=== PATIENT | female | born 1950 | race Caucasian/White ===

== ENCOUNTER 2018-02-08 11:41 | Outpatient (CLI) | payer MEDICARE, BC | END 2018-02-08 11:42 | disposition home or self-care (01) | LOC: BICRAD 11:41 | PROVIDERS: ATTEND Internal Medicine | DX: I10 Essential (primary) hypertension (principal) | CPT/HCPCS: 71046 ==

== ENCOUNTER 2018-08-02 09:29 | Outpatient (CLI) | payer MEDICARE, BC ==
--- NOTE | 2018-08-02 10:54 | BD ---
DEXA BONE DENSITY STUDY: History: Postmenopausal. Lumbar Spine: BMD (g/cm2) L1 1.004 T-Score: +0.1 L2 1.064 T-Score: +0.1 L3 1.126 T-Score: +0.4 L4 1.188 T-Score: +1.2 L1-L4 1.104 T-Score: +0.5 Femoral Neck: 0.490 T-Score: +3.2 Total Femur: 0.746 T-Score: -1.6 Impression: 1. Normal bone mineral density of the lumbar spine. 2. Osteoporosis of the left femoral neck. 3. 10-year fracture risk major osseous spinal fracture is 17% and hip fracture is 6.3%. These fractur e probabilities are calculated for an untreated patient. POS: CHRISTI
== END 2018-08-02 09:30 | disposition home or self-care (01) ==
LOC: BICMAMMO 09:29
PROVIDERS: ATTEND Obstetrics & Gynecology
DX: Z12.31 Encounter for screening mammogram for malignant neoplasm of breast (principal); M81.0 Age-related osteoporosis without current pathological fracture; Z80.3 Family history of malignant neoplasm of breast
CPT/HCPCS: 77063; 77067; 77080

== ENCOUNTER 2019-08-03 09:45 | Outpatient (CLI) | payer MEDICARE, BC ==
--- NOTE | 2019-08-03 12:05 | BD ---
DEXA BONE DENSITY STUDY: HISTORY: Postmenopausal. LUMBAR SPINE BMD (g/cm2) T-SCORE L1 1.000 +0.1 L2 1.182 +1.4 L3 1.141 +0.5 L4 1.083 +0.2 TOTAL 1.104 +0.5 LEFT FEMORAL NECK 0.500 -3.1 TOTAL 0.707 -1.9 IMPRESSION: 1. Osteoporosis of the left femoral neck. 2. Normal bone mineral density of the lumbar spine. POS: [facility]
--- NOTE | 2019-08-03 13:40 | MMO ---
Bilateral MAMMO Bilat Screen [facility]. CLINICAL HISTORY: Patient is 69 years old and is seen for screening. The patient has the following family history of breast cancer: maternal grandmother, at age 67. The patient has no personal history of cancer. VIEWS: The views performed were: bilateral craniocaudal with tomosynthesis; bilateral mediolateral oblique with tomosynthesis; and right mediolateral oblique. FILMS COMPARED: The present examination has been compared to prior imaging studies performed at [facility] on 07/21/2016, 07/27/2017, 08/05/2017 and 08/02/2018. This study has been interpreted with the assistance of computer-aided detection. MAMMOGRAM FINDINGS: The breasts are heterogeneously dense, which could obscure a lesion on mammography. There are no suspicious masses, suspicious calcifications, or new areas of architectural distortion. IMPRESSION: THERE IS NO MAMMOGRAPHIC EVIDENCE OF MALIGNANCY. A ROUTINE FOLLOW-UP MAMMOGRAM IN 1 YEAR IS RECOMMENDED. THE RESULTS OF THIS EXAM WERE SENT TO THE PATIENT. ACR BI-RADS Category 1 - Negative MAMMOGRAPHY NOTE: 1. A negative mammogram report should not delay a biopsy if a dominant of clinically suspicious mass is present. 2. Approximately 10% to 15% of breast cancers are not detected by mammography. 3. Adenosis and dense breasts may obscure an underlying neoplasm. Reported by: YIFAN TINSLEY MD Electonically Signed: [id number]
== END 2019-08-03 09:46 | disposition home or self-care (01) ==
LOC: BICMAMMO 09:45
DX: Z12.31 Encounter for screening mammogram for malignant neoplasm of breast (principal); M81.0 Age-related osteoporosis without current pathological fracture; Z80.3 Family history of malignant neoplasm of breast
CPT/HCPCS: 77063; 77067; 77080

== ENCOUNTER 2020-08-12 09:27 | Outpatient (CLI) | payer MEDICARE, BC ==
--- NOTE | 2020-08-12 10:09 | BD ---
EXAM: DEXA bone density examination HISTORY: 70-year-old postmenopausal female for screening COMPARISON: 08/03/2019 FINDINGS: L1--bone mineral density 1.052 g/sq cm; T score 0.6 L2--bone mineral density 1.095 g/sq cm; T score 0.6 L3--bone mineral density 1.211 g/sq cm; T score 1.2 L4--bone mineral density 1.103 g/sq cm; T score 0.4 Total L1-L4--bone mineral density 1.116 g/sq cm; T score 0.6 Left femoral neck--bone mineral density0.501; T score -3.1 Total proximal left femur--bone mineral density 0.714; T score -1.9 IMPRESSION: Osteoporosis. When compared to the prior examination, the bone density in the spine and h ip have not changed significantly.
--- NOTE | 2020-08-12 10:34 | MMO ---
Bilateral MAMMO Bilat Screen [facility]. CLINICAL HISTORY: Patient is 70 years old and is seen for screening. The patient has the following family history of breast cancer: maternal grandmother, at age 67. The patient has no personal history of cancer. VIEWS: The views performed were: bilateral craniocaudal with tomosynthesis and bilateral mediolateral oblique with tomosynthesis. FILMS COMPARED: The present examination has been compared to prior imaging studies performed at [facility] on 07/27/2017, 08/05/2017, 08/02/2018 and 08/03/2019. This study has been interpreted with the assistance of computer-aided detection. MAMMOGRAM FINDINGS: The breasts are heterogeneously dense, which could obscure a lesion on mammography. There are no suspicious masses, suspicious calcifications, or new areas of architectural distortion. IMPRESSION: THERE IS NO MAMMOGRAPHIC EVIDENCE OF MALIGNANCY. A ROUTINE FOLLOW-UP MAMMOGRAM IN 1 YEAR IS RECOMMENDED. THE RESULTS OF THIS EXAM WERE SENT TO THE PATIENT. ACR BI-RADS Category 1 - Negative MAMMOGRAPHY NOTE: 1. A negative mammogram report should not delay a biopsy if a dominant of clinically suspicious mass is present. 2. Approximately 10% to 15% of breast cancers are not detected by mammography. 3. Adenosis and dense breasts may obscure an underlying neoplasm. Reported by: PONCHO WAYNE MD Electonically Signed: [id number]
== END 2020-08-12 09:28 | disposition home or self-care (01) ==
LOC: BICMAMMO 09:27
PROVIDERS: ATTEND Internal Medicine Endocrinology, Diabetes & Metabolism
DX: Z12.31 Encounter for screening mammogram for malignant neoplasm of breast (principal); M81.0 Age-related osteoporosis without current pathological fracture; Z80.3 Family history of malignant neoplasm of breast
CPT/HCPCS: 77063; 77067; 77080

== ENCOUNTER 2021-08-14 09:31 | Outpatient (CLI) | payer MEDICARE, BC | END 2021-08-14 09:32 | disposition home or self-care (01) | LOC: BICMAMMO 09:31 | PROVIDERS: ATTEND Obstetrics & Gynecology | DX: Z12.31 Encounter for screening mammogram for malignant neoplasm of breast (principal); Z80.3 Family history of malignant neoplasm of breast | CPT/HCPCS: 77063; 77067 ==

== ENCOUNTER 2021-12-30 11:27 | Outpatient (CLI) | payer MEDICARE, BC | END 2021-12-30 11:28 | disposition home or self-care (01) | LOC: RAD 11:27 | PROVIDERS: ATTEND Obstetrics & Gynecology | DX: Z51.81 Encounter for therapeutic drug level monitoring (principal); Z79.899 Other long term (current) drug therapy | CPT/HCPCS: 72190 ==

== ENCOUNTER 2022-04-24 11:07 | Outpatient (CLI) | payer MEDICARE, BC | END 2022-04-24 11:08 | disposition home or self-care (01) | LOC: BICRAD 11:07 | PROVIDERS: ATTEND Internal Medicine | DX: M19.90 Unspecified osteoarthritis, unspecified site (principal) | CPT/HCPCS: 72100; 72170 ==

== ENCOUNTER 2022-08-17 09:59 | Outpatient (CLI) | payer MEDICARE, BC | END 2022-08-17 10:00 | disposition home or self-care (01) | LOC: BICMAMMO 09:59 | PROVIDERS: ATTEND Internal Medicine Endocrinology, Diabetes & Metabolism | DX: Z12.31 Encounter for screening mammogram for malignant neoplasm of breast (principal); M81.0 Age-related osteoporosis without current pathological fracture; M85.851 Other specified disorders of bone density and structure, right thigh; Z80.3 Family history of malignant neoplasm of breast | CPT/HCPCS: 77063; 77067; 77080 ==

== ENCOUNTER 2023-08-19 10:36 | Outpatient (CLI) | payer MEDICARE, BC | END 2023-08-19 10:37 | disposition home or self-care (01) | LOC: BICMAMMO 10:36 | PROVIDERS: ATTEND Obstetrics & Gynecology | DX: Z12.31 Encounter for screening mammogram for malignant neoplasm of breast (principal); M81.8 Other osteoporosis without current pathological fracture; Z80.3 Family history of malignant neoplasm of breast | CPT/HCPCS: 77063; 77067; 77080 ==

== ENCOUNTER 2024-08-28 10:43 | Outpatient (CLI) | payer MEDICARE, BC | END 2024-08-28 10:44 | disposition home or self-care (01) | LOC: BICMAMMO 10:43 | PROVIDERS: ATTEND Internal Medicine Endocrinology, Diabetes & Metabolism | DX: Z12.31 Encounter for screening mammogram for malignant neoplasm of breast (principal); M81.8 Other osteoporosis without current pathological fracture; Z80.3 Family history of malignant neoplasm of breast | CPT/HCPCS: 77063; 77067; 77080 ==

== ENCOUNTER 2025-08-31 08:51 | Outpatient (CLI) | payer MEDICARE, BC | END 2025-08-31 08:52 | disposition home or self-care (01) | LOC: BICMAMMO 08:51 | PROVIDERS: ATTEND Internal Medicine Endocrinology, Diabetes & Metabolism | DX: Z12.31 Encounter for screening mammogram for malignant neoplasm of breast (principal); M81.8 Other osteoporosis without current pathological fracture; M85.851 Other specified disorders of bone density and structure, right thigh; M85.852 Other specified disorders of bone density and structure, left thigh; Z80.3 Family history of malignant neoplasm of breast | CPT/HCPCS: 77063; 77067; 77080 ==